=== PATIENT | female | born 1980 | race Caucasian/White ===

== ENCOUNTER 2016-10-20 10:48 | Inpatient (IN) | payer OTHER ==
[~2016-10-20] VITALS: Ht 167.6 cm; Wt 93.7 kg
[~2016-10-20 10:48] MED LIST: ALBUTEROL SULF8.5 GM IH; AMBIEN10 MG PO; AMITRIPTYLINE H25 MG PO; ANTIBIOTIC; AUGMENTIN875 MG PO; BUSPAR10 MG PO; ENDOCET 5-3251 EACH PO; GABAPENTIN300 MG PO; HYDROCODON-ACE1 EAC7 PO; IBUPROFEN800 MG PO; KLONOPIN0.5 M1 PO; KLONOPIN2 MG PO; LATUDA40 MG PO; LATUDA80 MG PO; LEVOFLOXACIN750 MG PO; LITHIUM; LITHIUM CARBON300 M1 PO; LITHIUM CARBON450 MG PO; LORTAB 10-3251 EACH PO; LORTAB 5-325 M1 EACH PO; MEDROL DOSEPAK4 MG PO; MOBIC15 MG PO; MOTRIN800 MG PO; NAPHCON-A EYE D15 ML LEFT EYE; NAPROSYN500 MG PO; NAPROXEN500 MG PO; NEURONTIN100 MG PO; NOHOMEMEDS; NORCO 5/3251 TABLET PO; NORCO 7.5/321 TABLET PO; PAXIL20 MG PO; PEPCID20 MG PO; PERCOCET 5/31 TABLET PO; PREMARIN0.3 MG PO; PROMETHAZINE HC25 M1 PO; PROZAC20 M1 PO; PROZAC40 MG PO; RISPERDAL1 MG PO; ROBITUSSIN AC,T10 ML PO; SEROQUEL; SEROQUEL100 MG PO; SEROQUEL300 MG PO; SEROQUEL400 MG PO; TORADOL10 MG PO; TRAZODONE HCL100 MG PO; VICODIN; VICODIN 5-3001 EACH PO; VICODIN,LORT1 TABLET PO; VIIBRYD20 MG PO; VIIBRYD40 MG PO; XANAX0.5 MG PO; XANAX1 MG PO; ZITHROMAX Z-PA250 MG PO; ZOFRAN ODT8 MG PO; ZYRTEC10 M3 PO
[2016-10-20 12:46] LABS: EOSINOPHIL (%) 1.6 % (0-5); EOSINOPHIL COUNT 0.2 K/uL (0-0.3); HEMATOCRIT 37.3 % (36.0-46.0); IMMATURE GRANULOCYTE (%) 0.3 % (0.0-0.7); INSTRUMENT ABS NEUTROPHIL CT 5.6 K/uL; LYMPHOCYTE COUNT 3.1 K/uL (1.0-2.8); MCH 29.5 PG (29.0-34.0); MCHC 33.2 G/DL (30.0-36.0); MCV 88.6 FL (83-99); MONOCYTE (%) 6.3 % (3-12); MONOCYTE COUNT 0.6 K/uL (0-0.8); NEUTROPHIL COUNT 5.6 K/uL (1.8-6.4); PLATELET COUNT 336 K/uL (156-360); RBC DIS.WIDTH-CV 13.2 % (11.8-14.6); RBC DIS.WIDTH-SD 42.9 % (39-53); RED BLOOD COUNT 4.21 M/uL (3.80-5.20); WHITE BLOOD COUNT 9.6 K/uL (4.1-10.2)
[2016-10-20 12:58] LABS: CHLORIDE 111 mEq/L (99-109); POTASSIUM 3.2 mEq/L (3.7-5.4); SODIUM 141 mEq/L (136-147)
[2016-10-20 13:01] LABS: GLUCOSE 122 mg/dL (70-99)
[2016-10-20 13:02] LABS: ANION GAP 6 MEQ/L (2-14); TOTAL BILIRUBIN 0.3 mg/dL (0.0-1.0)
[2016-10-20 13:04] LABS: ALKALINE PHOSPHATASE 64 IU/L (3-129); GFR ESTIMATE (CALCULATED) > 59 mL/min/
[2016-10-20 13:05] LABS: UREA NITROGEN (BUN) 8 mg/dL (9-23)
[2016-10-20 13:16] LABS: QUANTITATIVE HCG < 4.0 MIU/ML
[2016-10-20] MEDS ORDERED: CLONAZEPAM1 MG PO (16:16)
[2016-10-20] MEDS ORDERED: AMBIEN10 MG PO (16:16)
[2016-10-20 19:27] VITALS: BP 124/72
[2016-10-21 00:11] VITALS: BP 104/62
[2016-10-21 07:22] VITALS: BP 117/79
[2016-10-21 16:27] VITALS: BP 130/72
[2016-10-21 23:10] VITALS: BP 122/72
[2016-10-22 02:46] LABS: GFR ESTIMATE (CALCULATED) > 59 mL/min/
[2016-10-22 02:47] LABS: UREA NITROGEN (BUN) 10 mg/dL (9-23)
[2016-10-22 08:29] VITALS: BP 138/69
[2016-10-22] MEDS ORDERED: AMOX TR-K CLV1 EAC4 PO (10:17)
[2016-10-22] MEDS ORDERED: NICOTINE PATCH1 EAC2 TD (10:17)
== END 2016-10-22 11:25 | disposition home or self-care (01) | DRG 603 ==
LOC: EME 10:48 → EDOF 17:12 → ENRESERV 17:14 → 3EAST 19:03
PROVIDERS: Hospitalist; Physician Assistant
DX: L03.012 Cellulitis of left finger (principal); E87.6 Hypokalemia; M65.9 Synovitis and tenosynovitis, unspecified; F41.9 Anxiety disorder, unspecified; F32.9 Major depressive disorder, single episode, unspecified; F17.200 Nicotine dependence, unspecified, uncomplicated; Z68.33 Body mass index [BMI] 33.0-33.9, adult
CPT/HCPCS: 73140; 80053; 81003; 82565; 83605; 84520; 84702; 85025; 87040; 99281; 99285; J0295; J0696; J1885; J2270; J3010; J3370; J7050; J7120